=== PATIENT | female | born 1950 | race Caucasian/White ===

== ENCOUNTER 2021-04-20 18:20 | Emergency (ER) | payer MEDICARE, BC ==
[~2021-04-20] VITALS: Ht 167.6 cm; Wt 107.0 kg
[2021-04-20] MEDS ORDERED: ONDANSETRON 4 MG/2 ML VIAL IV ONE (19:00)
[2021-04-20] MEDS ORDERED: IV NORMAL SALINE 1000 ML BAG IV ONE (19:00)
[2021-04-20] MEDS ORDERED: HYDROMORPHONE 1 MG/1 ML DISP.SYRIN IV ONE (19:00)
--- NOTE | 2021-04-20 19:05 | NUR ---
PT IS IN ROOM # 1A. DR REILLY EVALUATED THE PT.
[2021-04-20] MEDS ORDERED: APIX5TAB PO (19:12)
[2021-04-20] MEDS ORDERED: ATOR80TA PO (19:12)
[2021-04-20] MEDS ORDERED: QUET50TA PO (19:12)
[2021-04-20] MEDS ORDERED: MELA3TAB41 PO (19:12)
[2021-04-20] MEDS ORDERED: PANT40TA49 PO (19:12)
[2021-04-20] MEDS ORDERED: ACET-2154 PO (19:12)
[2021-04-20] MEDS ORDERED: TRAM50TA2 PO (19:12)
[2021-04-20] MEDS ORDERED: SENN-261 PO (19:12)
[2021-04-20] MEDS ORDERED: VENL37.510 PO (19:12)
[2021-04-20] MEDS ORDERED: GUAI600T53 PO (19:12)
[2021-04-20] MEDS ORDERED: HYOS0.1273 SL (19:12)
[2021-04-20] MEDS ORDERED: SUMA100T16 PO (19:12)
[2021-04-20] MEDS ORDERED: DOXY100C5 PO (19:12)
[2021-04-20] MEDS ORDERED: POLY17PO4 PO (19:12)
[2021-04-20] MEDS ORDERED: AMIO200T5 PO (19:12)
[2021-04-20] MEDS ORDERED: LEVO200T9 PO (19:12)
[2021-04-20] MEDS ORDERED: ONDANSETRON 4 MG/2 ML VIAL ONE (19:16)
[2021-04-20] MEDS ORDERED: HYDROMORPHONE 1 MG/1 ML DISP.SYRIN ONE (19:16)
[2021-04-20 19:24] LABS: HEMATOCRIT 26.2 % (31.2-41.9); MEAN CORPUSCULAR HEMOGLOBIN 22.2 uug (24.7-32.8); MEAN CORPUSCULAR VOLUME 73.2 fL (75.5-95.3); PLATELET COUNT (AUTO) 322 K/uL (179-408)
[2021-04-20 19:52] LABS: CREATININE 0.7 mg/dL (0.6-1.3)
[2021-04-20 19:59] LABS: BILIRUBIN,DIRECT 0.2 mg/dL (0.0-0.2); BILIRUBIN,TOTAL 0.9 mg/dL (0.2-1.0); TOTAL PROTEIN, SERUM 7.1 g/dL (6.4-8.2)
[2021-04-20] MEDS ORDERED: IV NORMAL SALINE 250 ML IV ONE (20:11)
[2021-04-20] MEDS ORDERED: IOHEXOL 300MG/ML 100 ML INFUS..BTL ONE (20:11)
[2021-04-20] MEDS ORDERED: SWABABLE VALVE TRANSFER SET EA MC ONE (20:11)
[2021-04-20 20:15] LABS: IRON, SERUM 19 ug/dL (50-175)
[2021-04-20 20:42] LABS: MAGNESIUM 2.2 mg/dL (1.8-2.4)
[2021-04-20] MEDS ORDERED: POTASSIUM CHLORIDE 50 ML IV SCH (21:15)
[2021-04-20] MEDS ORDERED: CYANOCOBALAMIN 1000 MCG/ML VIAL IM ONE (21:15)
[2021-04-20] MEDS ORDERED: CYANOCOBALAMIN 1000 MCG/ML VIAL ONE (22:12)
[2021-04-20] MEDS ORDERED: POTASSIUM CHLORIDE 50 ML ONE (22:26)
[2021-04-20] MEDS ORDERED: PROC-11 PO (23:15)
[2021-04-20] MEDS ORDERED: FERR325T23 PO (23:15)
[2021-04-20] MEDS ORDERED: POTASSIUM CHLORIDE 150 ML ONE (23:30)
[2021-04-21] MEDS ORDERED: POTASSIUM BICARBONATE/CIT AC 25 MEQ TABLET.EFF PO ONE (01:15)
[2021-04-21] MEDS ORDERED: POTASSIUM BICARBONATE/CIT AC 25 MEQ TABLET.EFF ONE (01:18)
== END 2021-04-21 07:58 | disposition home or self-care (01) ==
LOC: ER 18:25
DX: D50.9 Iron deficiency anemia, unspecified (principal); R11.2 Nausea with vomiting, unspecified; E53.8 Deficiency of other specified B group vitamins; E87.6 Hypokalemia; I48.91 Unspecified atrial fibrillation; R94.31 Abnormal electrocardiogram [ECG] [EKG]; Z20.822 Contact with and (suspected) exposure to COVID-19; Z85.038 Personal history of other malignant neoplasm of large intestine; E66.9 Obesity, unspecified; Z68.38 Body mass index [BMI] 38.0-38.9, adult; I10 Essential (primary) hypertension; Z79.01 Long term (current) use of anticoagulants; Z79.899 Other long term (current) drug therapy
CPT/HCPCS: 71045; 74177; 80048; 80076; 82607; 83550; 83690; 83735; 84484; 85025; 85730; 87426; 93005; 96361; 96365; 96366; 96372; 96375; 99285; J1170; J2405; J3420; J3480 ×2; Q9967; 36415; 70030-TC; A4663; J7030; J7050

== ENCOUNTER 2022-09-21 20:21 | Inpatient (IN) | payer MEDICARE, BC ==
[~2022-09-21] VITALS: Ht 162.6 cm; Wt 79.8 kg
[2022-09-21 20:00] VITALS: BP 144/73; TEMP 98.7; O2SAT 98
[~2022-09-21 20:21] MED LIST: ACET-2154 PO; AMIO200T5 PO; APIX5TAB PO; ATOR80TA PO; CARB1TAB21 PO; DOXY100C5 PO; FERR325T23 PO; GUAI600T53 PO; HYOS0.1273 SL; LEVO200T9 PO; PANT40TA49 PO; POLY17PO4 PO; PROC-11 PO; SENN-261 PO; SUMA100T16 PO; TRAM50TA2 PO
--- NOTE | 2022-09-21 20:30 | NUR ---
Patient received from U via gurney accompanied by M[facility] nurse and a sitter. AAOx1; confused; Dx UTI. No signs of respiratory distress; admission care and rendered. 1 to 1 sitter at bedside. Care plan initiated. All needs attended. Fall precautions implemented. Will continue to monitor.
[2022-09-21] MEDS ORDERED: AMIT25TA9 PO (20:43)
[2022-09-21] MEDS ORDERED: CLON1TAB12 PO (20:44)
[2022-09-21] MEDS ORDERED: REMEDY ESSENTIAL ZINC PASTE 113 GM TP PRN (20:45)
[2022-09-21] MEDS ORDERED: MAGNESIUM HYDROXIDE 30 ML LIQUID UDC PO PRN (20:45)
[2022-09-21] MEDS ORDERED: ONDANSETRON 4 MG/2 ML VIAL IV PRN (20:45)
[2022-09-21] MEDS ORDERED: OLAN5TAB3 PO (20:46)
[2022-09-21] MEDS ORDERED: TEMA15CA PO (20:47)
[2022-09-21] MEDS ORDERED: BUSP5POW MC (20:49)
[2022-09-21] MEDS ORDERED: MAG-106 PO (20:53)
[2022-09-21] MEDS ORDERED: BUSP5TAB3 PO (20:56)
[2022-09-21] MEDS ORDERED: MIRALAX 17 GM POWD.PACK PO PRN (21:15)
[2022-09-21] MEDS ORDERED: MEROPENEM 1 G in IV NORMAL SALINE 100 ML IV SCH (22:00)
[2022-09-21] MEDS ORDERED: MEROPENEM 1 G in IV NORMAL SALINE 100 ML IV ONE (23:00)
[2022-09-21] MEDS: TEMAZEPAM 7.5 MG CAPSULE PO PRN (23:37)
[2022-09-22] MEDS: CLONAZEPAM 1 MG TABLET PO PRN ×2 (01:55→20:56)
[2022-09-22 04:00] VITALS: BP 152/80; TEMP 98.3; O2SAT 95
[2022-09-22 07:14] VITALS: BP 122/58; TEMP 98.1; O2SAT 93
--- NOTE | 2022-09-22 07:30 | NUR ---
Awake, alert, oriented to self. Screaming even nursing at bedside, when asked she doesn't know. Redirected. 1:1 sitter at bedside
[2022-09-22 07:39] LABS: HEMATOCRIT 36.1 % (31.2-41.9); MEAN CORPUSCULAR HEMOGLOBIN 31.8 uug (24.7-32.8); MEAN CORPUSCULAR VOLUME 94.2 fL (75.5-95.3); PLATELET COUNT (AUTO) 396 K/uL (179-408)
[2022-09-22 07:57] LABS: CREATININE 0.7 mg/dL (0.6-1.3); MAGNESIUM 2.2 mg/dL (1.8-2.4); PHOSPHOROUS 4.9 mg/dL (2.5-4.9)
[2022-09-22] MEDS: busPIRone 5 MG TABLET PO SCH ×3 (09:00→17:44)
[2022-09-22] MEDS: FERROUS SULFATE 325 MG TABEC PO SCH (09:01)
[2022-09-22] MEDS: CARBIDOPA/LEVODOPA 25-100MG TABLET PO SCH ×3 (09:01→17:44)
[2022-09-22] MEDS: OLANZAPINE 5 MG TABLET PO SCH ×3 (09:01→17:44)
[2022-09-22] MEDS: SENNOSIDES 1 TABLET PO SCH ×2 (09:01→17:45)
[2022-09-22] MEDS: LEVOTHYROXINE SODIUM 200 MCG TABLET PO SCH (09:01)
[2022-09-22] MEDS: AMIODARONE HCL 200 MG TABLET PO SCH (09:01)
[2022-09-22] MEDS: APIXABAN 5 MG TABLET PO SCH ×2 (09:02→17:45)
[2022-09-22] MEDS: MEROPENEM 1 G in IV NORMAL SALINE 100 ML IV SCH ×2 (09:14→17:44)
--- NOTE | 2022-09-22 10:00 | NUR ---
Bed bath given. Sleeping comfortably after.
[2022-09-22] MEDS ORDERED: POTASSIUM CHLORIDE 20 MEQ TAB.PRT.SR PO ONE (10:30)
[2022-09-22] MEDS ORDERED: POLY17PO4 GT (12:20)
--- NOTE | 2022-09-22 13:30 | NUR ---
Still sleeping, aroused, lunch served and medication given.
--- NOTE | 2022-09-22 15:00 | NUR ---
yelling in between even with redirection. Repositioned comfortably.
[2022-09-22 16:59] VITALS: BP 114/65; TEMP 98.7; O2SAT 91
[2022-09-22] MEDS ORDERED: Medication Not On Formulary EA (Atorvastatin Calcium (Lipitor) 1 TAB) PO SCH (18:00)
--- NOTE | 2022-09-22 18:09 | NUR ---
Eating fairly. Able to take crushed medications with apple sauce. Still yelling in between. Repositioned comfortably. 1:1 sitter at bedside
[2022-09-22] MEDS: AMITRIPTYLINE HCL 25 MG TABLET PO SCH (20:56)
[2022-09-22] MEDS: ATORVASTATIN 40 MG TABLET PO SCH (20:56)
[2022-09-22 21:50] VITALS: BP 144/80; TEMP 98.2; O2SAT 96
[2022-09-23] MEDS: MEROPENEM 1 G in IV NORMAL SALINE 100 ML IV SCH ×3 (00:38→17:30)
[2022-09-23 06:55] LABS: HEMATOCRIT 35.5 % (31.2-41.9); MEAN CORPUSCULAR HEMOGLOBIN 31.8 uug (24.7-32.8); MEAN CORPUSCULAR VOLUME 96.3 fL (75.5-95.3); PLATELET COUNT (AUTO) 354 K/uL (179-408)
[2022-09-23 07:10] LABS: CARBON DIOXIDE 27 mmol/L (21-32); CHLORIDE 115 mmol/L (98-107); CREATININE 0.6 mg/dL (0.6-1.3); MAGNESIUM 2.3 mg/dL (1.8-2.4); PHOSPHOROUS 3.3 mg/dL (2.5-4.9); POTASSIUM 3.1 mmol/L (3.5-5.1); UREA NITROGEN, BLOOD 26 mg/dL (7-18)
--- NOTE | 2022-09-23 09:00 | NUR ---
Patient still asleep unable to given oral medications. Addendum: 09/23/22 at 1856 by LAVERN YOUNGBLOOD RN Patient still asleep unable to give oral medications. Keep patient monitored. Meds given when fully awake with aspiration precaution.
--- NOTE | 2022-09-23 10:00 | NUR ---
Seen and examined by Dr. Zelaya with order made and carried, Discontinued 5250 hold.
[2022-09-23] MEDS: OLANZAPINE 5 MG TABLET PO SCH ×3 (11:41→17:09)
[2022-09-23] MEDS: LEVOTHYROXINE SODIUM 200 MCG TABLET PO SCH (11:41)
[2022-09-23] MEDS: busPIRone 5 MG TABLET PO SCH ×3 (11:42→17:09)
[2022-09-23] MEDS: SENNOSIDES 1 TABLET PO SCH ×2 (11:42→17:09)
[2022-09-23] MEDS: FERROUS SULFATE 325 MG TABEC PO SCH (11:42)
[2022-09-23] MEDS: CARBIDOPA/LEVODOPA 25-100MG TABLET PO SCH ×3 (11:42→17:09)
[2022-09-23] MEDS: AMIODARONE HCL 200 MG TABLET PO SCH (11:42)
[2022-09-23] MEDS: APIXABAN 5 MG TABLET PO SCH ×2 (11:43→17:10)
[2022-09-23 12:00] VITALS: BP 141/76; TEMP 98.1; O2SAT 93
[2022-09-23] MEDS: CLONAZEPAM 1 MG TABLET PO PRN ×2 (13:26→21:55)
[2022-09-23] MEDS: POTASSIUM CHLORIDE 20 MEQ TAB.PRT.SR PO SCH ×2 (15:12→17:12)
[2022-09-23 16:00] VITALS: BP 125/56; TEMP 98; O2SAT 96
--- NOTE | 2022-09-23 18:51 | NUR ---
Received patient lying bed asleep. IV catheter at left wrist g. 22 intact and patent. Vital signs taken and recorded. Due medications given and tolerated. with aspiration precaution when feeding and giving medication. No signs of distress and no SOB. Patient with episodes moaning and yelling. Keep patient monitored, needs attended
[2022-09-23 20:00] VITALS: BP 132/65; TEMP 100.1; O2SAT 93
[2022-09-23] MEDS: ATORVASTATIN 40 MG TABLET PO SCH (20:53)
[2022-09-23] MEDS: ACETAMINOPHEN 325 MG TABLET PO PRN (20:53)
[2022-09-23] MEDS: AMITRIPTYLINE HCL 25 MG TABLET PO SCH (20:53)
[2022-09-23 21:15] VITALS: BP 125/60; TEMP 99.4; O2SAT 93
--- NOTE | 2022-09-23 22:05 | NUR ---
Patient received in bed; awake yelling and screaming; with temp. 100.1; cooling measures was given, re-assess vital after 30 mins. temperature went down to 99.4; PRN antipyretic meds. was given;lower the bed; call light with in patient reached;
[2022-09-23] MEDS: TEMAZEPAM 7.5 MG CAPSULE PO PRN (23:24)
[2022-09-24] MEDS: MEROPENEM 1 G in IV NORMAL SALINE 100 ML IV SCH ×3 (01:15→19:16)
[2022-09-24] MEDS: ATORVASTATIN 40 MG TABLET PO SCH (01:31)
[2022-09-24] MEDS: CLONAZEPAM 1 MG TABLET PO PRN (01:38)
[2022-09-24 04:20] VITALS: BP 156/75; TEMP 99; O2SAT 100
[2022-09-24] MEDS: IV 1/2NS 1000 ML 1,000 ML IV PRN ×2 (04:33→19:25)
--- NOTE | 2022-09-24 06:58 | NUR ---
Pt rested fairly in between care; new IV to right hand g 22; VSS; afebrile at this time; pt remains crying; reassurance given; AM care done; continue to monitor; continue to plan of care.
--- NOTE | 2022-09-24 08:00 | NUR ---
Awake, oriented to self, yelling. Redirected. IVF infusing. Bed alarm on.
[2022-09-24 10:23] LABS: HEMATOCRIT 34.2 % (31.2-41.9); MEAN CORPUSCULAR HEMOGLOBIN 31.4 uug (24.7-32.8); MEAN CORPUSCULAR VOLUME 95.7 fL (75.5-95.3); PLATELET COUNT (AUTO) 327 K/uL (179-408)
[2022-09-24] MEDS: LEVOTHYROXINE SODIUM 200 MCG TABLET PO SCH (10:30)
[2022-09-24] MEDS: CARBIDOPA/LEVODOPA 25-100MG TABLET PO SCH ×3 (10:30→19:15)
[2022-09-24] MEDS: SENNOSIDES 1 TABLET PO SCH ×2 (10:30→19:17)
[2022-09-24] MEDS: APIXABAN 5 MG TABLET PO SCH ×2 (10:31→19:15)
[2022-09-24] MEDS: OLANZAPINE 5 MG TABLET PO SCH ×3 (10:31→19:18)
[2022-09-24] MEDS: AMIODARONE HCL 200 MG TABLET PO SCH (10:32)
[2022-09-24] MEDS: busPIRone 5 MG TABLET PO SCH ×3 (10:32→19:15)
[2022-09-24] MEDS: FERROUS SULFATE 325 MG TABEC PO SCH (10:32)
[2022-09-24 10:46] LABS: ALANINE AMINOTRANSFERASE 15 U/L (14-59); ALKALINE PHOSPHATASE 70 U/L (50-136); ASPARTATE AMINOTRANSFERASE 13 U/L (15-37); BILIRUBIN,TOTAL 0.6 mg/dL (0.2-1.0); CARBON DIOXIDE 24 mmol/L (21-32); CHLORIDE 112 mmol/L (98-107); CREATININE 0.5 mg/dL (0.6-1.3); MAGNESIUM 2.1 mg/dL (1.8-2.4); PHOSPHOROUS 2.5 mg/dL (2.5-4.9); POTASSIUM 3.4 mmol/L (3.5-5.1); TOTAL PROTEIN, SERUM 6.2 g/dL (6.4-8.2); UREA NITROGEN, BLOOD 22 mg/dL (7-18)
[2022-09-24] MEDS ORDERED: POTASSIUM CHLORIDE 20 MEQ TAB.PRT.SR PO ONE (11:45)
[2022-09-24 12:00] VITALS: BP 103/56; TEMP 98.1; O2SAT 95
--- NOTE | 2022-09-24 13:00 | NUR ---
Assisted with meals, with aspiration precaution
[2022-09-24 16:17] VITALS: BP 116/62; TEMP 98.4; O2SAT 93
--- NOTE | 2022-09-24 18:00 | NUR ---
less yelling. Assisted with meals. Repositioned comfortably.
[2022-09-24 20:00] VITALS: BP 141/82; TEMP 98.9; O2SAT 94
--- NOTE | 2022-09-24 20:00 | NUR ---
Received patient laying in bed. Alert and oriented x1-2. Room air, Iv sites intact and patent. Observed patient yelling and moaning. Safety measures in place. Will continue to monitor and continue plan of care.
[2022-09-24] MEDS: AMITRIPTYLINE HCL 25 MG TABLET PO SCH (20:25)
[2022-09-24] MEDS: TEMAZEPAM 7.5 MG CAPSULE PO PRN (23:53)
[2022-09-25] MEDS: MEROPENEM 1 G in IV NORMAL SALINE 100 ML IV SCH ×3 (00:34→17:27)
[2022-09-25 04:00] VITALS: BP 125/71; TEMP 98.1; O2SAT 98
[2022-09-25 07:05] LABS: HEMATOCRIT 32.1 % (31.2-41.9); MEAN CORPUSCULAR HEMOGLOBIN 31.7 uug (24.7-32.8); MEAN CORPUSCULAR VOLUME 95.9 fL (75.5-95.3); PLATELET COUNT (AUTO) 303 K/uL (179-408)
[2022-09-25 07:31] LABS: ALANINE AMINOTRANSFERASE 14 U/L (14-59); ALKALINE PHOSPHATASE 62 U/L (50-136); ASPARTATE AMINOTRANSFERASE 13 U/L (15-37); BILIRUBIN,TOTAL 0.5 mg/dL (0.2-1.0); CARBON DIOXIDE 26 mmol/L (21-32); CHLORIDE 113 mmol/L (98-107); CREATININE 0.5 mg/dL (0.6-1.3); MAGNESIUM 2.2 mg/dL (1.8-2.4); PHOSPHOROUS 3.2 mg/dL (2.5-4.9); POTASSIUM 3.7 mmol/L (3.5-5.1); TOTAL PROTEIN, SERUM 5.7 g/dL (6.4-8.2); UREA NITROGEN, BLOOD 26 mg/dL (7-18)
[2022-09-25] MEDS: SENNOSIDES 1 TABLET PO SCH ×2 (08:09→17:22)
[2022-09-25] MEDS: FERROUS SULFATE 325 MG TABEC PO SCH (08:09)
[2022-09-25] MEDS: busPIRone 5 MG TABLET PO SCH ×3 (08:09→17:22)
[2022-09-25] MEDS: LEVOTHYROXINE SODIUM 200 MCG TABLET PO SCH (08:09)
[2022-09-25] MEDS: AMIODARONE HCL 200 MG TABLET PO SCH (08:10)
[2022-09-25] MEDS: CARBIDOPA/LEVODOPA 25-100MG TABLET PO SCH ×3 (08:11→17:22)
[2022-09-25] MEDS: OLANZAPINE 5 MG TABLET PO SCH ×3 (08:11→17:22)
[2022-09-25] MEDS: APIXABAN 5 MG TABLET PO SCH ×2 (08:29→17:27)
[2022-09-25] MEDS: CLONAZEPAM 1 MG TABLET PO PRN ×2 (10:20→14:33)
[2022-09-25] MEDS: IV 1/2NS 1000 ML 1,000 ML IV PRN (10:34)
[2022-09-25 11:40] VITALS: BP 118/88; TEMP 97.8; O2SAT 95
[2022-09-25 16:39] VITALS: BP 115/63; TEMP 99; O2SAT 94
[2022-09-25] MEDS: GLUCERNA SHAKE 237 ML CAN PO SCH (17:28)
--- NOTE | 2022-09-25 19:25 | NUR ---
Handoff with JAYLEEN Chisholm.
[2022-09-25 20:00] VITALS: BP_SYST 103; BP_SYST 150; BP_DIAS 36; BP_DIAS 71; TEMP 102.6; TEMP 98.4; O2SAT 92; O2SAT 96
[2022-09-25] MEDS: ATORVASTATIN 40 MG TABLET PO SCH (21:28)
[2022-09-25] MEDS: AMITRIPTYLINE HCL 25 MG TABLET PO SCH (21:28)
[2022-09-26] MEDS: CLONAZEPAM 1 MG TABLET PO PRN ×4 (00:31→21:12)
[2022-09-26] MEDS: MEROPENEM 1 G in IV NORMAL SALINE 100 ML IV SCH ×3 (00:42→16:24)
[2022-09-26] MEDS: IV 1/2NS 1000 ML 1,000 ML IV PRN ×2 (00:50→16:25)
[2022-09-26 04:00] VITALS: BP 129/72; TEMP 98; O2SAT 93
[2022-09-26 08:00] VITALS: BP 143/79; TEMP 98.4; O2SAT 94
[2022-09-26] MEDS: GLUCERNA SHAKE 237 ML CAN PO SCH ×2 (08:00→16:31)
[2022-09-26] MEDS: busPIRone 5 MG TABLET PO SCH ×3 (09:39→16:30)
[2022-09-26] MEDS: CARBIDOPA/LEVODOPA 25-100MG TABLET PO SCH ×3 (09:40→16:31)
[2022-09-26] MEDS: AMIODARONE HCL 200 MG TABLET PO SCH (09:40)
[2022-09-26] MEDS: SENNOSIDES 1 TABLET PO SCH ×2 (09:41→16:31)
[2022-09-26] MEDS: APIXABAN 5 MG TABLET PO SCH ×2 (09:41→16:30)
[2022-09-26] MEDS: FERROUS SULFATE 325 MG TABEC PO SCH (09:41)
[2022-09-26] MEDS: OLANZAPINE 5 MG TABLET PO SCH ×3 (09:41→16:31)
[2022-09-26] MEDS: LEVOTHYROXINE SODIUM 200 MCG TABLET PO SCH (09:41)
--- NOTE | 2022-09-26 10:00 | NUR ---
Pt received sleeping comfortable no distress observed. Pt awakes for AM meds and swallow without any difficult. Pt denies at this time any pain HOB kept elevated at all times Continue monitoring condition and Endorse care to nurse fore changes in the assignment.
--- NOTE | 2022-09-26 11:00 | NUR ---
Received patient at 1100; report endorsed to me from Emmie.
[2022-09-26 11:36] VITALS: BP 153/77; TEMP 98.1; O2SAT 92
[2022-09-26 16:02] VITALS: BP 166/88; TEMP 98.6; O2SAT 94
[2022-09-26 20:30] VITALS: BP 145/72; TEMP 98.6; O2SAT 93
[2022-09-26] MEDS: AMITRIPTYLINE HCL 25 MG TABLET PO SCH (21:12)
[2022-09-26] MEDS: ATORVASTATIN 40 MG TABLET PO SCH (21:13)
[2022-09-26 22:55] VITALS: BP 145/72; TEMP 98.6; O2SAT 93
--- NOTE | 2022-09-27 00:19 | NUR ---
Patient alert, lying in bed resting at this time. no acute distress noted. no c/o pain or discomfort noted. medications given as ordered. safety maintained. vitals WNL. will cont to monitor throughout shift.
[2022-09-27] MEDS: MEROPENEM 1 G in IV NORMAL SALINE 100 ML IV SCH ×3 (01:12→17:12)
[2022-09-27 04:20] VITALS: BP 146/73; TEMP 98.5; O2SAT 94
[2022-09-27] MEDS: GLUCERNA SHAKE 237 ML CAN PO SCH ×2 (08:00→17:00)
[2022-09-27] MEDS: SENNOSIDES 1 TABLET PO SCH ×2 (09:00→17:12)
[2022-09-27] MEDS: CARBIDOPA/LEVODOPA 25-100MG TABLET PO SCH ×3 (09:00→17:12)
[2022-09-27] MEDS: FERROUS SULFATE 325 MG TABEC PO SCH (09:00)
[2022-09-27] MEDS: LEVOTHYROXINE SODIUM 200 MCG TABLET PO SCH (09:00)
[2022-09-27] MEDS: OLANZAPINE 5 MG TABLET PO SCH ×3 (09:00→17:11)
[2022-09-27] MEDS: APIXABAN 5 MG TABLET PO SCH ×2 (09:00→17:11)
[2022-09-27] MEDS: AMIODARONE HCL 200 MG TABLET PO SCH (09:00)
[2022-09-27] MEDS: busPIRone 5 MG TABLET PO SCH ×3 (09:00→17:12)
[2022-09-27 11:19] VITALS: BP 135/62; TEMP 97.6; O2SAT 97
[2022-09-27 15:21] VITALS: BP 137/70; TEMP 97; O2SAT 96
[2022-09-27] MEDS: AMITRIPTYLINE HCL 25 MG TABLET PO SCH (17:12)
[2022-09-27 20:00] VITALS: BP 145/84; TEMP 98.7; O2SAT 95
--- NOTE | 2022-09-27 20:10 | NUR ---
Received patient in bed, eyes close but yelling, for apparent reason, afebrile, v/s wnl, unable to tell what patient needs, no complain of pain when ask, kept clean and dry, Patient behavior may be due to mental condition, will kept comfortable, and medicate as ordered, frequent visual check done, given fluids, but refused ensure supplement. cont to monitor, cont abx for infection,
[2022-09-27] MEDS: TEMAZEPAM 7.5 MG CAPSULE PO PRN (22:15)
[2022-09-27] MEDS: ATORVASTATIN 40 MG TABLET PO SCH (22:16)
[2022-09-28] MEDS: MEROPENEM 1 G in IV NORMAL SALINE 100 ML IV SCH ×3 (00:16→16:28)
[2022-09-28 04:00] VITALS: BP 143/98; TEMP 97.5; O2SAT 96
[2022-09-28] MEDS: ACETAMINOPHEN 325 MG TABLET PO PRN (04:31)
[2022-09-28] MEDS: CLONAZEPAM 1 MG TABLET PO PRN ×2 (04:31→09:11)
--- NOTE | 2022-09-28 04:39 | NUR ---
Patient slept for few hours then wake up screaming again, patient un redirectable, patient was clean, dry, afebrile, when ask what is wrong, her answer "it's the Maybelene" unable to elaborate what bothering her, given Klonopin 1mg and tylenol 650mg for pain and comfort, cont to monitor.
[2022-09-28 06:38] LABS: HEMATOCRIT 34.7 % (31.2-41.9); MEAN CORPUSCULAR HEMOGLOBIN 31.4 uug (24.7-32.8); MEAN CORPUSCULAR VOLUME 93.3 fL (75.5-95.3); PLATELET COUNT (AUTO) 292 K/uL (179-408)
[2022-09-28 07:15] LABS: ALANINE AMINOTRANSFERASE 8 U/L (14-59); ALKALINE PHOSPHATASE 66 U/L (50-136); ASPARTATE AMINOTRANSFERASE 13 U/L (15-37); BILIRUBIN,TOTAL 0.9 mg/dL (0.2-1.0); CARBON DIOXIDE 24 mmol/L (21-32); CHLORIDE 108 mmol/L (98-107); CREATININE 0.4 mg/dL (0.6-1.3); POTASSIUM 2.9 mmol/L (3.5-5.1); TOTAL PROTEIN, SERUM 5.7 g/dL (6.4-8.2); UREA NITROGEN, BLOOD 9 mg/dL (7-18)
[2022-09-28] MEDS: SENNOSIDES 1 TABLET PO SCH ×2 (09:11→16:29)
[2022-09-28] MEDS: CARBIDOPA/LEVODOPA 25-100MG TABLET PO SCH ×3 (09:11→16:28)
[2022-09-28] MEDS: busPIRone 5 MG TABLET PO SCH ×3 (09:12→16:29)
[2022-09-28] MEDS: FERROUS SULFATE 325 MG TABEC PO SCH (09:12)
[2022-09-28] MEDS: OLANZAPINE 5 MG TABLET PO SCH ×3 (09:12→16:29)
[2022-09-28] MEDS: LEVOTHYROXINE SODIUM 200 MCG TABLET PO SCH (09:12)
[2022-09-28] MEDS: AMIODARONE HCL 200 MG TABLET PO SCH (09:13)
[2022-09-28] MEDS: APIXABAN 5 MG TABLET PO SCH ×2 (09:15→16:36)
[2022-09-28] MEDS ORDERED: POTASSIUM CHLORIDE 20 MEQ POWDER PACKET PO ONE ×2 (09:15→14:00)
[2022-09-28] MEDS: GLUCERNA SHAKE 237 ML CAN PO SCH ×2 (09:17→16:29)
--- NOTE | 2022-09-28 09:45 | NUR ---
Rcvd pt in bed resting with occasional yelling. AAOX4. No respiratory issue noted at this time. Routine meds given and pt. Tolerated it well but took too long to take medications. Consumed fairly with her meal. Right hand IV #22 patent and intact. No a/r noted from IV ATB. Needs attended. Call light within reach.
[2022-09-28] MEDS: IV 1/2NS 1000 ML 1,000 ML IV PRN (11:27)
[2022-09-28 13:03] VITALS: BP 149/79; TEMP 98; O2SAT 97
--- NOTE | 2022-09-28 15:22 | NUR ---
KB Discharge Update: KB spoke with pt's cousin/DPOA, Selene [phone] who requested assistance with a facility for pt's continuation of care. KB offered a few half-way facilities in [facility] such as [facility] and [facility]. Selene approved these locations and this KB gave report to telephonic nurse case manager melina to refer. KB will help assist and follow-up.
[2022-09-28 16:26] VITALS: BP 133/61; TEMP 97.9; O2SAT 97
--- NOTE | 2022-09-28 18:18 | NUR ---
With discharge order but still waiting for the facility that will accept pt for the continuation of care. Pt is yelling but not for pain and when asked she will just say " I am not in pain, I just want to". Keep pt. clean and dry. Reposition q2 hours. With 30-40% meal consumption. Encourage to feed continuously. Continue for IV hydration and antibiotics.
[2022-09-28 20:19] VITALS: BP 144/85; TEMP 98.9; O2SAT 97
[2022-09-28] MEDS: ATORVASTATIN 40 MG TABLET PO SCH (20:23)
[2022-09-28] MEDS: AMITRIPTYLINE HCL 25 MG TABLET PO SCH (20:23)
[2022-09-29] MEDS: ACETAMINOPHEN 325 MG TABLET PO PRN (03:47)
[2022-09-29] MEDS: CLONAZEPAM 1 MG TABLET PO PRN ×2 (03:47→21:46)
[2022-09-29 04:00] VITALS: BP 132/63; TEMP 97.6; O2SAT 97
[2022-09-29] MEDS: IV 1/2NS 1000 ML 1,000 ML IV PRN (07:00)
[2022-09-29 07:43] LABS: CARBON DIOXIDE 25 mmol/L (21-32); CHLORIDE 109 mmol/L (98-107); CREATININE 0.4 mg/dL (0.6-1.3); POTASSIUM 3.1 mmol/L (3.5-5.1); UREA NITROGEN, BLOOD 10 mg/dL (7-18)
[2022-09-29] MEDS: FERROUS SULFATE 325 MG TABEC PO SCH (09:01)
[2022-09-29] MEDS: busPIRone 5 MG TABLET PO SCH ×3 (09:01→17:06)
[2022-09-29] MEDS: OLANZAPINE 5 MG TABLET PO SCH ×3 (09:02→17:07)
[2022-09-29] MEDS: SENNOSIDES 1 TABLET PO SCH ×2 (09:02→17:06)
[2022-09-29] MEDS: CARBIDOPA/LEVODOPA 25-100MG TABLET PO SCH ×3 (09:02→17:07)
[2022-09-29] MEDS: AMIODARONE HCL 200 MG TABLET PO SCH (09:06)
[2022-09-29] MEDS: GLUCERNA SHAKE 237 ML CAN PO SCH ×2 (09:08→17:09)
[2022-09-29] MEDS: LEVOTHYROXINE SODIUM 200 MCG TABLET PO SCH (09:09)
[2022-09-29] MEDS: APIXABAN 5 MG TABLET PO SCH ×2 (09:12→17:08)
[2022-09-29] MEDS ORDERED: POTASSIUM CHLORIDE 20 MEQ POWDER PACKET PO ONE (09:15)
[2022-09-29] MEDS ORDERED: POTASSIUM CHLORIDE 20 MEQ TAB.PRT.SR PO ONE (09:15)
--- NOTE | 2022-09-29 09:15 | NUR ---
Rcvd pt in bed sitting semi-fowlers sleeping and resting. Took her medications as ordered and tolerated it but needs extra time since pt does not want to swallow. No adverse reaction noted with IV ATB. Continue Iv hydration at 75cc 1/2 normal saline. Keep pt. clean and dry.
[2022-09-29 11:36] VITALS: BP 142/81; TEMP 97.7; O2SAT 98
[2022-09-29 16:35] VITALS: BP 131/88; TEMP 97.6; O2SAT 97
--- NOTE | 2022-09-29 18:25 | NUR ---
New IV site place, Right AC patent and intact running at 75cc of 1/2 NS. Keep pt clean and dry. Reposition pt and keep her comfortable. Feed the pt and made sure she is drinking too using spoon (no straw). Spoke to pt's DPOA (Selene). With discharge order but no place to go yet. Pt. still yelling occasionally. Family will bring or just call the anti glaucoma meds ruiz. Needs attended.
--- NOTE | 2022-09-29 19:30 | NUR ---
Received patient laying in bed, with family at bedside. Alert and oriented x1-2. Room air, Iv sites intact and patent. Observed patient yelling and moaning. Safety measures in place. Will continue to monitor and continue plan of care.
[2022-09-29 20:00] VITALS: BP 145/77; TEMP 98.4; O2SAT 96
[2022-09-29] MEDS: AMITRIPTYLINE HCL 25 MG TABLET PO SCH (20:58)
[2022-09-29] MEDS: ATORVASTATIN 40 MG TABLET PO SCH (20:58)
[2022-09-29] MEDS ORDERED: LATANOPROST OPHT DROP 2.5 ML BOTTLE ONE (21:22)
[2022-09-29] MEDS: LATANOPROST OPHT DROP 2.5 ML BOTTLE EACHEYE SCH (21:35)
[2022-09-30 04:00] VITALS: BP 135/81; TEMP 98.1; O2SAT 96
[2022-09-30] MEDS: LEVOTHYROXINE SODIUM 200 MCG TABLET PO SCH (06:04)
[2022-09-30] MEDS: IV 1/2NS 1000 ML 1,000 ML IV PRN ×2 (06:46→20:48)
[2022-09-30 07:47] LABS: CARBON DIOXIDE 26 mmol/L (21-32); CHLORIDE 110 mmol/L (98-107); CREATININE 0.4 mg/dL (0.6-1.3); POTASSIUM 3.2 mmol/L (3.5-5.1); UREA NITROGEN, BLOOD 9 mg/dL (7-18)
[2022-09-30] MEDS: GLUCERNA SHAKE 237 ML CAN PO SCH ×2 (08:00→18:11)
[2022-09-30] MEDS ORDERED: POTASSIUM CHLORIDE 20 MEQ TAB.PRT.SR PO ONE (10:00)
[2022-09-30] MEDS: FERROUS SULFATE 325 MG TABEC PO SCH (11:04)
[2022-09-30] MEDS: AMIODARONE HCL 200 MG TABLET PO SCH (11:04)
[2022-09-30] MEDS: OLANZAPINE 5 MG TABLET PO SCH ×3 (11:05→18:09)
[2022-09-30] MEDS: CARBIDOPA/LEVODOPA 25-100MG TABLET PO SCH ×3 (11:05→18:07)
[2022-09-30] MEDS: SENNOSIDES 1 TABLET PO SCH ×2 (11:05→17:00)
[2022-09-30] MEDS: APIXABAN 5 MG TABLET PO SCH ×2 (11:07→18:08)
[2022-09-30] MEDS: busPIRone 5 MG TABLET PO SCH ×3 (11:08→18:07)
[2022-09-30 11:35] VITALS: BP 132/84; TEMP 98; O2SAT 98
[2022-09-30 16:21] VITALS: BP 119/61; TEMP 98.7; O2SAT 97
--- NOTE | 2022-09-30 19:42 | NUR ---
Report given to ANTONETTE Ballesteros
[2022-09-30 20:00] VITALS: BP 154/86; TEMP 98.7; O2SAT 98
[2022-09-30] MEDS: LATANOPROST OPHT DROP 2.5 ML BOTTLE EACHEYE SCH (20:28)
[2022-09-30] MEDS: ATORVASTATIN 40 MG TABLET PO SCH (20:28)
[2022-09-30] MEDS: AMITRIPTYLINE HCL 25 MG TABLET PO SCH (20:28)
[2022-09-30] MEDS: CLONAZEPAM 1 MG TABLET PO PRN (20:41)
[2022-10-01 04:00] VITALS: BP 149/76; TEMP 98.1; O2SAT 97
[2022-10-01 05:07] LABS: *BILIRUBIN,URIN NEGATIVE (NEGATIVE); *CLARITY,URINE CLEAR (CLEAR); *COLOR,URINE YELLOW (YELLOW); *KETONES,URINE NEGATIVE (NEGATIVE); *UROBILINOGEN,URINE 0.2 E.U./dl (NORMAL); LEUKOCYTE ESTERASE ,URINE 1+ (NEGATIVE); NITRITE, URINE NEGATIVE (NEGATIVE); UGLUCOSE NEGATIVE (NEGATIVE)
[2022-10-01 05:09] LABS: *BLOOD, URINE TRACE (NEGATIVE)
[2022-10-01 05:24] LABS: BACTERIA,URINE FEW /HPF (NONE SEEN); SQUAMOUS EPITHELIAL CELL,UR FEW /HPF (NONE SEEN)
[2022-10-01] MEDS: LEVOTHYROXINE SODIUM 200 MCG TABLET PO SCH (06:13)
[2022-10-01 07:22] LABS: CARBON DIOXIDE 24 mmol/L (21-32); CHLORIDE 108 mmol/L (98-107); CREATININE 0.4 mg/dL (0.6-1.3); POTASSIUM 3.6 mmol/L (3.5-5.1); UREA NITROGEN, BLOOD 8 mg/dL (7-18)
[2022-10-01 08:00] VITALS: BP 118/58; TEMP 98.7; O2SAT 98
[2022-10-01] MEDS: GLUCERNA SHAKE 237 ML CAN PO SCH ×2 (08:00→16:49)
[2022-10-01] MEDS: APIXABAN 5 MG TABLET PO SCH ×2 (09:46→16:54)
[2022-10-01] MEDS: FERROUS SULFATE 325 MG TABEC PO SCH (09:47)
[2022-10-01] MEDS: AMIODARONE HCL 200 MG TABLET PO SCH (09:47)
[2022-10-01] MEDS: SENNOSIDES 1 TABLET PO SCH ×2 (09:47→16:49)
[2022-10-01] MEDS: busPIRone 5 MG TABLET PO SCH ×3 (09:47→16:49)
[2022-10-01] MEDS: CLONAZEPAM 1 MG TABLET PO PRN (09:47)
[2022-10-01] MEDS: OLANZAPINE 5 MG TABLET PO SCH ×3 (09:47→16:50)
[2022-10-01] MEDS: CARBIDOPA/LEVODOPA 25-100MG TABLET PO SCH ×3 (09:47→16:50)
[2022-10-01] MEDS: IV 1/2NS 1000 ML 1,000 ML IV PRN (09:48)
[2022-10-01 12:04] VITALS: BP 102/57; TEMP 97.7; O2SAT 98
[2022-10-01 16:11] VITALS: BP 116/62; TEMP 98.1; O2SAT 93
--- NOTE | 2022-10-01 17:30 | NUR ---
Called and gave report to Aicha at [facility] for discharge, and Discontinued IV.
--- NOTE | 2022-10-01 20:05 | NUR ---
AMBULANCE TRANSPORT AT BEDSIDE TO [facility] PATIENT AND TRANSFER BACK TO [facility]. VS WNL. PATIENT LEFT FACILITY IN STABLE CONDITION. ALL NEEDS ATTENDED.
== END 2022-10-01 20:05 | DRG 689 ==
LOC: MEDSURG3 20:21
PROVIDERS: ADMIT Nurse Practitioner Family; ATTEND Nurse Practitioner Acute Care
DX: N39.0 Urinary tract infection, site not specified (principal); G93.41 Metabolic encephalopathy; Z16.24 Resistance to multiple antibiotics; D68.69 Other thrombophilia; F03.92 Unspecified dementia, unspecified severity, with psychotic disturbance; E87.0 Hyperosmolality and hypernatremia; B96.4 Proteus (mirabilis) (morganii) as the cause of diseases classified elsewhere; I48.0 Paroxysmal atrial fibrillation; E03.9 Hypothyroidism, unspecified; E78.5 Hyperlipidemia, unspecified; E87.6 Hypokalemia; I10 Essential (primary) hypertension; K21.9 Gastro-esophageal reflux disease without esophagitis; F29 Unspecified psychosis not due to a substance or known physiological condition; E66.01 Morbid (severe) obesity due to excess calories; Z68.30 Body mass index [BMI] 30.0-30.9, adult; F32.9 Major depressive disorder, single episode, unspecified; G43.909 Migraine, unspecified, not intractable, without status migrainosus
CPT/HCPCS: 36415; 83735; 84100; 84300; 85025; C1758; G0378; J2185